=== PATIENT | female | born 1965 | race Asian ===

== ENCOUNTER 2018-07-17 11:12 | Emergency (ER) | payer MEDICARE ==
[~2018-07-17] VITALS: Ht 157.5 cm; Wt 61.4 kg
[2018-07-17] MEDS ORDERED: CARBAMIDE PEROXIDE 6.5% 15 ML OTIC SOLUTION AU ONE (12:00)
[2018-07-17 12:54] VITALS: BP 139/81
== END 2018-07-17 13:07 | disposition home or self-care (01) ==
LOC: EMS 11:12
DX: H61.22 Impacted cerumen, left ear (principal)